=== PATIENT | female | born 1985 | race Caucasian/White ===

== ENCOUNTER → 2017-11-27 | Outpatient (CLI) | payer OTHER ==
[2016-03-15 21:28] VITALS: BP 101/67
[~2017-11-27] MED LIST: COLACE100 MG PO; IBUPROFEN800 MG PO; LEXAPRO 10MG10 MG PO; LORAZEPAM0.5 M1 PO; PERCOCET 325 MG1 TA2 PO
== END ==
LOC: RAD 11:16
DX: R91.8 Other nonspecific abnormal finding of lung field (principal)